=== PATIENT | female | born 1990 | race Caucasian/White ===

== ENCOUNTER 2023-05-21 07:52 | Outpatient (CLI) | payer OTHER | END 2023-05-21 07:53 | disposition home or self-care (01) | LOC: SCSMRI 07:52 | PROVIDERS: ATTEND Family Medicine | DX: S50.02XD Contusion of left elbow, subsequent encounter (principal); M79.2 Neuralgia and neuritis, unspecified; M67.422 Ganglion, left elbow ==

== ENCOUNTER 2023-11-09 13:20 | Outpatient (CLI) | payer BC ==
[2023-11-09 13:58] LABS: #Basophils 0.1 10x3/uL (0.0-0.2); #Eosinphils 0.1 10x3/uL (0.0-0.5); #Monocytes 0.3 10x3/uL (0.0-1.1); %Eosinophils 1.1 % (0.0-6.0); %Monocytes 4.4 % (0.0-10.0); %Neutrophils 54.1 % (40.0-75.0); Hematocrit 40.5 % (34.9-44.5); Hemoglobin 14.1 g/dL (12.0-15.5); Mean Corpuscular HGB CONC 34.8 g/dL (32.0-36.0); Mean Corpuscular Hemoglobin 30.1 pg (27.0-33.0); Mean Corpuscular Volume 86.4 fl (81.6-98.3); Platelet Count 272 10x3/uL (150-450); RBC Distribution Width 12.3 % (11.5-14.5); Red Blood Cell (RBC) Count 4.69 10x6/uL (3.90-5.03); White Blood Cell (WBC) Count 7.3 10x3/uL (3.5-10.5)
[2023-11-09 14:03] LABS: BHCG - Serum Negative (NEGATIVE); Pregs Control Background? CLEAR/WHITE (CLR/WHITE); Pregs Control Bar Appear? YES (CONTROL BAR)
== END 2023-11-09 13:21 | disposition home or self-care (01) ==
LOC: LABBT 13:20
PROVIDERS: ATTEND Orthopaedic Surgery
DX: Z01.812 Encounter for preprocedural laboratory examination (principal); G56.02 Carpal tunnel syndrome, left upper limb; M67.422 Ganglion, left elbow
CPT/HCPCS: 84703; 85025

== ENCOUNTER 2023-11-12 06:51 | Day surgery (SDC) | payer BC, OTHER ==
[2023-11-09 13:41] VITALS: BMI 40.8
[2023-11-12] MEDS ORDERED: PROPOFOL 40 ML ONE (09:25)
[2023-11-12] MEDS ORDERED: EPINEPHrine 1 MG/ML VIAL ONE ×2 (09:28→09:29)
[2023-11-12] MEDS ORDERED: Bupivacaine PF 0.5% 30 ML VIAL ONE (09:28)
[2023-11-12] MEDS ORDERED: CEFAZOLIN 2 GM VIAL ONE (09:31)
[2023-11-12] MEDS ORDERED: Sodium Chloride 0.9% 100 ML ONE (09:31)
[2023-11-12] MEDS ORDERED: HYDROmorphone 2 MG/ML VIAL ONE (09:59)
[2023-11-12] MEDS ORDERED: Dexamethasone 4 mg/ml Vial ONE (10:04)
[2023-11-12] MEDS ORDERED: Ondansetron PF 4 MG/2 ML Vial ONE (10:04)
[2023-11-12] MEDS ORDERED: Glycopyrrolate 0.2 MG/ML 5 ML SYRINGE ONE (10:08)
[2023-11-12] MEDS ORDERED: fentaNYL 50 mcg/mL 1 mL Vial ONE ×2 (11:31→12:34)
[2023-11-12] MEDS ORDERED: HYDROcodone/Acetaminophen 5/325 mg Tablet ONE (13:35)
== END 2023-11-12 14:08 | disposition home or self-care (01) ==
LOC: SDC 06:51
PROVIDERS: ATTEND Orthopaedic Surgery
PROC: 01N40ZZ Release Ulnar Nerve, Open Approach (ICD-10-PCS; principal; 2023-11-12)
DX: G56.22 Lesion of ulnar nerve, left upper limb (principal); I10 Essential (primary) hypertension; F41.9 Anxiety disorder, unspecified; F32.A Depression, unspecified; E78.00 Pure hypercholesterolemia, unspecified; Z88.8 Allergy status to other drugs, medicaments and biological substances; Z79.899 Other long term (current) drug therapy
CPT/HCPCS: A6223; J0171; J0665; J1100; J1170; J2405; J2704; J3010; J3490

== ENCOUNTER 2024-09-07 11:51 | Emergency (ER) | payer BC ==
[2024-09-07 12:20] LABS: #Basophils 0.06 10x3/uL (0.0-0.2); %Basophils 0.8 % (0.0-1.0); %Eosinophils 1.4 % (0.0-10.0); %Lymphocytes 32.5 % (21.0-51.0); %Monocytes 5.5 % (0.0-10.0); %Neutrophils 59.7 % (42.0-75.0); Hematocrit 41.2 % (36.0-47.0); Hemoglobin 14.2 g/dL (12.0-16.0); Mean Corpuscular HGB CONC 34.5 g/dL (32.0-36.0); Mean Corpuscular Volume 86.9 fL (78.0-98.0); Mean Platelet Volume 10.5 fL (7.4-10.4); Platelet Count 287 10x3/uL (130-400); RBC Distribution Width 12.4 % (11.5-14.5); Red Blood Cell (RBC) Count 4.74 mill/uL (4.20-5.40)
[2024-09-07 12:38] LABS: ALT (SGPT) 27 U/L (8-55); AST (SGOT) 23 U/L (5-34); Albumin 4.2 g/dL (3.5-5.0); Alkaline Phosphatase 66 U/L (40-110); Anion Gap 15 mmol/L (10-20); BUN (Urea Nitrogen) 13 mg/dL (7.0-18.7); Bilirubin, Total 0.4 mg/dL (0.2-1.2); Calc. Creatinine Clearance 0 mL/min (70-130); Calcium 9.8 mg/dL (7.8-10.44); Carbon Dioxide 22 mmol/L (22-29); Chloride 107 mmol/L (98-107); Estimated GFR 84; Globulin 3.6 g/dL (2.4-3.5); Glucose 105 mg/dL (70-105); Protein, Total 7.8 g/dL (6.0-8.3); Sodium 140 mmol/L (136-145)
[2024-09-07 12:39] LABS: BHCG - Serum Negative (NEGATIVE); Pregs Control Background? CLEAR/WHITE (CLR/WHITE); Pregs Control Bar Appear? YES (CONTROL BAR)
[2024-09-07] MEDS ORDERED: Morphine 4 MG/ML VIAL ONE (12:42)
[2024-09-07] MEDS ORDERED: Ketorolac Tromethamine 30 MG (1 mL) VIAL ONE (12:42)
[2024-09-07] MEDS ORDERED: Ondansetron PF 4 MG/2 ML Vial ONE (12:42)
[2024-09-07 14:02] LABS: Bacteria/HPF None Seen HPF (None Seen); Bilirubin Negative (Negative); Blood, Urine Negative (Negative); CAUTI Indications for Culture Pelvic or flank pain; Clarity Clear (Clear); Glucose, Urine (Dipstick) Normal (Negative); Ketone, Urine Negative (Negative); Leukocyte Negative Leu/uL (Negative); Nitrite Negative (Negative); Protein, Urine (Dipstick) 20 mg/dL (Neg-Trace); Specific Gravity, Urine 1.041 (1.002-1.036); Squamous Epithelial 0-3 HPF (0-3); Urobilinogen Normal mg/dL (Less than 2); WBC/HPF 0-3 HPF (0-3)
[2024-09-07 14:05] LABS: Pregnancy Test - Urine (BHCG) Negative (Negative); Pregu Control Bar Appear? YES (CONTROL BAR); Specific Gravity 1.041 (1.002-1.036); Urine Culture Reflex No No
[2024-09-07 14:06] LABS: Pregu Control Background? CLEAR/WHITE (CLR/WHITE)
[2024-09-07] MEDS ORDERED: Iopamidol-370 76% 500 ML MDV (1 ML CHARGE) ONE (15:03)
== END 2024-09-07 15:22 | disposition home or self-care (01) ==
LOC: ERS 11:51
DX: N13.2 Hydronephrosis with renal and ureteral calculous obstruction (principal); I10 Essential (primary) hypertension; E78.00 Pure hypercholesterolemia, unspecified; Z79.899 Other long term (current) drug therapy
CPT/HCPCS: 36415; 74177; 80053; 81001; 81025; 84703; 85025; 96374; 96375; J1885; J2272; J2405; Q9967